=== PATIENT | male | born 1985 | race Two or more races ===

== ENCOUNTER 2017-09-20 08:19 | Emergency (ER) | payer OTHER ==
[2017-09-20 08:25] VITALS: BP 139/83; PULSE 83; TEMP 97.5; BMI 40.7
[2017-09-20] MEDS ORDERED: ALBUTEROL SO4 2.5/IPRATROPIUM 0.5 INH SOL 3 ML VIAL.NEB. NEB ONE ×3 (08:51→09:55)
[2017-09-20] MEDS ORDERED: predniSONE 20 MG TABLET (UD) PO ONE (08:51)
[2017-09-20] MEDS ORDERED: predniSONE 20 MG TABLET (UD) ONE (08:53)
--- NOTE | 2017-09-20 08:53 | PDOC ---
History of Present Illness - General Chief Complaint: Cold Symptoms Stated Complaint: COUGH Time Seen by Provider: 09/20/17 08:50 History Source: Patient Exam Limitations: No Limitations - History of Present Illness Initial Comments: 09/20/17 08:51 came for eval of persisitant/ worsening cough/ wheezing. States gets " bronchitis" every year this time. Denies fevers but cough and tightness worsening. Ran out of medications. 09/20/17 16:50 Severity: reports: mild, moderate Associated Symptoms: reports: cough, nasal congestion, nasal drainage, shortness of breath, wheezing Past History - Travel Traveled outside of the country in the last 30 days: No Close contact w/someone who was outside of country & ill: No - Past Medical History Allergies/Adverse Reactions: Allergies Allergy/AdvReac Type Severity Reaction Status Date / Time clindamycin Allergy Verified 09/20/17 08:23 Home Medications: Ambulatory Orders Albuterol Sulfate Inhaler - [Ventolin HFA Inhaler -] 1 - 2 inh IH QID #1 inhaler 04/19/12 Albuterol Sulfate Inhaler - [Ventolin Hfa *Inhaler*] 1 - 2 inh IH QID 04/19/12 Salmeterol/Fluticasone [Advair 250/50] 1 each IH BID #1 disk.w.dev 04/19/12 Albuterol 2.5/Ipratropium 0.5 [Duoneb -] 1 neb IH QID #30 vial.neb. 09/20/17 Azithromycin [Zithromax -] 250 mg PO UTDICT #6 tab 09/20/17 predniSONE [Deltasone -] 20 mg PO BID #8 tablet 09/20/17 Asthma: Yes COPD: No Diabetes: No HTN: No Hypercholesterolemia: No - Suicide/Smoking/Psychosocial Hx Smoking Status: No Smoking History: Never smoked Have you smoked in the past 12 months: No Number of Cigarettes Smoked Daily: 0 Information on smoking cessation initiated: No Hx Alcohol Use: No Drug/Substance Use Hx: No Substance Use Type: None Review of Systems - Review of Systems Able to Perform ROS?: Yes Is the patient limited Vietnamese proficient: Yes Constitutional: Yes: Symptoms Reported, See HPI, Fever, Malaise HEENTM: Yes: See HPI. No: Symptoms Reported Respiratory: Yes: Symptoms reported, See HPI, Cough, Shortness of Breath, SOB with Exertion, Wheezing Cardiac (ROS): No: Symptoms Reported ABD/GI: No: Symptoms Reported Neurological: No: Symptoms reported All Other Systems: Reviewed and Negative *Physical Exam - Vital Signs Last Vital Signs Temp Pulse Resp BP Pulse Ox 97.5 F L 83 16 139/83 100 09/20/17 08:23 09/20/17 08:23 09/20/17 08:23 09/20/17 08:23 09/20/17 08:23 - Physical Exam General Appearance: Yes: Nourished, Appropriately Dressed, Apparent Distress, Moderate Distress HEENT: positive: ANTOINE, Normal ENT Inspection, TMs Normal, Pharynx Normal Neck: positive: Supple. negative: Tender, Lymphadenopathy (R) Respiratory/Chest: positive: Wheezing. negative: Lungs Clear (tight insp and exp BS , + moist non productive cough), Normal Breath Sounds, Respiratory Distress Gastrointestinal/Abdominal: positive: Soft. 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 Medical Decision Making - Medical Decision Making 09/20/17 10:36 3 DuoNeb's, 60 mg prednisone, patient mildly improved, chest x-ray pending 09/20/17 11:05 XRay Negative for infiltrates / pathology. 09/20/17 11:52 Second survey negative for infiltrates, states feels much improved after fourth DuoNeb and ready for discharge. We'll send antibiotics,/Z-Hemal, prednisone for additional 4 days, and albuterol *DC/Admit/Observation/Transfer Diagnosis at time of Disposition: Bronchitis - Discharge Dispostion Disposition: HOME Condition at time of disposition: Stable Admit: No - Prescriptions Prescriptions: Albuterol 2.5/Ipratropium 0.5 [Duoneb -] 1 neb IH QID #30 vial.neb. Azithromycin [Zithromax -] 250 mg PO UTDICT #6 tab predniSONE [Deltasone -] 20 mg PO BID #8 tablet - Referrals - Patient Instructions Printed Discharge Instructions: DI for Acute Bronchitis Additional Instructions: Rest, drink lots of fluids: Teas, water, soups, Pedialyte Saltwater gargles Steamy showers/seem to face break up mucus Avoid contact with others until fevers and cough resolved Lots of handwashing and good hygiene Continue [id number] medications for symptomatic relief Tylenol or Motrin for fever and pain Continue albuterol nebulizers every 4-6 hours for the next 2 days then as needed for continued cough Prednisone as directed until completed zithromax as directed Followup with private physician in one to 2 days Return to emergency department / pediatric hospital for worsened symptoms, fevers, dehydration - Post Discharge Activity Forms/Work/School Notes: Back to Work
== END 2017-09-20 11:19 | disposition home or self-care (01) ==
LOC: JERFT 08:19
PROC: 3E0F7GC Introduction of Other Therapeutic Substance into Respiratory Tract, Via Natural or Artificial Opening (ICD-10-PCS; principal; 2017-09-20)
DX: J40 Bronchitis, not specified as acute or chronic (principal)
CPT/HCPCS: 71046-TC-FY; 99281-25

== ENCOUNTER 2019-08-14 12:58 | Emergency (ER) | payer OTHER ==
[2019-08-14 13:23] VITALS: BP 131/78; PULSE 84; TEMP 98.1; BMI 33.3
--- NOTE | 2019-08-14 14:04 | PDOC ---
History of Present Illness - General Chief Complaint: Eye Problem Stated Complaint: BLOORY VISION Time Seen by Provider: 08/14/19 14:04 History Source: Patient - History of Present Illness Initial Comments: 08/14/19 16:23 Chief complaint: Eye irritation Patient is a healthy 34-year-old male, does not wear glasses or contact lenses or have any eye problems who states for the last several days that his left eye has felt gritty and he has pain when he presses on one spot. Patient states today that he feels like his vision is questionably a little blurry. Patient does not recall any injury. GENERAL/CONSTITUTIONAL: No fever, weakness. dizziness HEAD, EYES, EARS, NOSE AND THROAT: Left eye irritation. No ear pain or discharge. No sore throat. CARDIOVASCULAR: No chest pain RESPIRATORY: No shortness of breath or cough GASTROINTESTINAL: No pain, nausea, vomiting, diarrhea or constipation GENITOURINARY: No dysuria MUSCULOSKELETAL: No neck or back pain SKIN: No rash NEUROLOGIC: No headache, vertigo, loss of consciousness, or loss of sensation. GENERAL: The patient is awake, alert, and fully oriented, in no acute distress. HEAD: Normal with no signs of trauma. EYES: Pupils equal, round and reactive to light, sclera anicteric, conjunctiva clear. EOMs intact, fundus exam grossly clear ENT: pharynx: no erythema, no exudate, uvula midline NECK: supple CHEST: clear, nontender, rr EXTREMITIES: Normal range of motion, no edema. NEUROLOGICAL: Normal speech, normal gait. SKIN: Warm, Dry Past History - Past Medical History Allergies/Adverse Reactions: Allergies Allergy/AdvReac Type Severity Reaction Status Date / Time clindamycin Allergy Verified 08/14/19 13:17 Home Medications: Ambulatory Orders Albuterol Sulfate Inhaler - [Ventolin Hfa *Inhaler*] 1 - 2 inh IH QID 04/19/12 Salmeterol/Fluticasone [Advair 250/50] 1 each IH BID #1 disk.w.dev 04/19/12 Albuterol 2.5/Ipratropium 0.5 [Duoneb -] 1 neb IH QID #30 vial.neb. 09/20/17 Ciprofloxacin 0.3% Eye Drops [Ciloxan 0.3% Eye Drops -] 2 drop OS Q4H #1 bottle 08/14/19 Asthma: Yes COPD: No Diabetes: No HTN: No Hypercholesterolemia: No - Psycho Social/Smoking Cessation Hx Smoking Status: No Smoking History: Never smoked Have you smoked in the past 12 months: No Number of Cigarettes Smoked Daily: 0 Hx Alcohol Use: No Drug/Substance Use Hx: No Substance Use Type: None *Physical Exam - Vital Signs Last Vital Signs Temp Pulse Resp BP Pulse Ox 98.1 F 84 18 131/78 99 08/14/19 13:21 08/14/19 13:21 08/14/19 13:21 08/14/19 13:21 08/14/19 13:21 Procedures - Eye Procedure Alcaine Drops Administered: Yes Eye Irrigated w/ Saline(Delmar Lens): No Progress: 08/14/19 16:27 Corneal abrasion seen between 11 and 12:00 over a decent aspect of the upper cornea, round, not obviously an ulcer. Medical Decision Making - Medical Decision Making 08/14/19 16:26 34-year-old male with left eye irritation, with some questional he blurry vision today. Visual acuity is 20/20 in the right eye and 20/30 in the left eye. Patient has no swelling or concerning clinical exam to the eye prior to staining. Does not wear glasses or contact lenses Fluorescein stain shows a corneal abrasion. Patient is allergic to clindamycin. We will give him Cipro drops and have him follow-up at [facility]. Discussed issues, findings, results, applicable medications and treatments and follow-up. All these were understood and all questions were answered Discharge - Discharge Information Problems reviewed: Yes Clinical Impression/Diagnosis: Corneal abrasion Qualifiers: Encounter type: initial encounter Laterality: left Qualified Code(s): S05.02XA - Injury of conjunctiva and corneal abrasion without foreign body, left eye, initial encounter Condition: Stable Disposition: HOME - Admission No - Additional Discharge Information Prescriptions: Ciprofloxacin 0.3% Eye Drops [Ciloxan 0.3% Eye Drops -] 2 drop OS Q4H #1 bottle - Follow up/Referral Referrals: Loreto Maciel MD [Staff Physician] - Prabhu Goodwin MD [Staff Physician] - - Patient Discharge Instructions Patient Printed Discharge Instructions: DI for Corneal Abrasion Additional Instructions: Put the Cipro drops in your left eye, 2 drops every 4 hours as directed. Make sure you see the digital manager in 24 to 48 hours. You were given the name of 2 of them. See who takes your insurance but find one and call them today to make the appointment. Make sure you tell them that you are in the emergency department and you have a corneal abrasion. Return to the ER if fever, redness around your eye, severe eye pain or other concerns - Post Discharge Activity
[2019-08-14] MEDS ORDERED: FLUORESCEIN NA 1 EA STRIP OS ONE (14:16)
[2019-08-14] MEDS ORDERED: TETRACAINE 0.5% HCL 0.6ML DROPPER.BOTTLE OS ONE (14:17)
[2019-08-14] MEDS ORDERED: TETRACAINE 0.5% OPHTH SOLN 2 ML BOTTLE ONE (14:20)
[2019-08-14] MEDS ORDERED: FLUORESCEIN NA 1 EA STRIP ONE (14:20)
== END 2019-08-14 14:52 | disposition home or self-care (01) ==
LOC: JERFT 12:58
DX: S05.02XA Injury of conjunctiva and corneal abrasion without foreign body, left eye, initial encounter (principal); Z88.8 Allergy status to other drugs, medicaments and biological substances; J45.909 Unspecified asthma, uncomplicated
CPT/HCPCS: 99283-25

== ENCOUNTER 2021-01-11 08:46 | Emergency (ER) | payer OTHER ==
[2021-01-11 08:57] VITALS: TEMP 97.9; BMI 44.9
[2021-01-11] MEDS ORDERED: SODIUM CHLORIDE 0.9% 500 ML INFUS.BAG IV ONE (09:45)
[2021-01-11] MEDS ORDERED: ACETAMINOPHEN INJECTION 100 ML IVPB ONE (09:45)
[2021-01-11] MEDS ORDERED: ACETAMINOPHEN 1000 MG/100 ML VIAL (NON FORMULARY) IVPB ONE (09:45)
[2021-01-11] MEDS ORDERED: ONDANSETRON 4 MG/2 ML VIAL IVPUSH ONE (10:49)
[2021-01-11] MEDS ORDERED: ONDANSETRON 4 MG/2 ML VIAL ONE (10:58)
[2021-01-11 11:57] LABS: BASO % 0.2 % (0-2.0); EOS % 0.3 % (0-4.5); HEMATOCRIT 41.2 % (35.4-49); HEMOGLOBIN 13.8 GM/dL (11.7-16.9); LYMPH % 10.3 % (8-40); MCH 28.8 pg (25.7-33.7); MCHC 33.6 g/dl (32.0-35.9); MEAN CELL VOLUME 85.9 fl (80-96); MEAN PLT VOLUME 8.8 fl (7.5-11.1); MONO % 5.8 % (3.8-10.2); NEUT % 83.4 % (42.8-82.8); PLATELET COUNT 296 10^3/uL (134-434); RDW 13.8 % (11.9-15.9); WHITE BLOOD COUNT 11.6 K/mm3 (4.0-10.0)
[2021-01-11 12:16] LABS: ALBUMIN 3.9 g/dl (3.4-5.0); BLOOD UREA NITROGEN 16.1 mg/dL (7-18); CALCIUM 8.6 mg/dL (8.5-10.1)
[2021-01-11 12:19] LABS: CREATININE 1.1 mg/dL (0.55-1.3)
[2021-01-11 12:22] LABS: BILIRUBIN,TOTAL 0.6 mg/dL (0.2-1); TOT PROT 7.6 g/dl (6.4-8.2)
[2021-01-11] MEDS ORDERED: KETOROLAC TROMETHAMINE 15 MG/ML VIAL IVPUSH ONE (12:29)
[2021-01-11] MEDS ORDERED: KETOROLAC TROMETHAMINE 15 MG/ML VIAL ONE (12:32)
[2021-01-11 12:39] VITALS: BP 139/87; PULSE 69
[2021-01-11 12:55] LABS: EPI CELLS 7 /uL (0-25.1); HYALINE CASTS 2 /uL (0-3.1); PH,URINE 5.5 (5.0-8.0); URINE APPEARANCE CLEAR; URINE BACTERIA 24 /uL (0-1359); URINE BILIRUBIN NEGATIVE (NEGATIVE); URINE COLOR YELLOW; URINE GLUCOSE (UA) NEGATIVE (NEGATIVE); URINE KETONE NEGATIVE (NEGATIVE); URINE LEUK ESTERASE NEGATIVE (NEGATIVE); URINE NITRITE NEGATIVE (NEGATIVE); URINE PROTEIN NEGATIVE (NEGATIVE); URINE RBC 21 /uL (0-23.9); URINE UROBILINOGEN 0.2 mg/dL (0.2-1.0); URINE WBC 8 /uL (0-25.8)
== END 2021-01-11 13:40 | disposition home or self-care (01) ==
LOC: JER 08:46
PROC: 3E0333Z Introduction of Anti-inflammatory into Peripheral Vein, Percutaneous Approach (ICD-10-PCS; principal; 2021-01-11)
PROC: 3E0333Z Introduction of Anti-inflammatory into Peripheral Vein, Percutaneous Approach (ICD-10-PCS; 2021-01-11)
PROC: 3E033GC Introduction of Other Therapeutic Substance into Peripheral Vein, Percutaneous Approach (ICD-10-PCS; 2021-01-11)
DX: R10.9 Unspecified abdominal pain (principal)
CPT/HCPCS: 36415; 80053; 81003; 85025; 87086; 99284-25; J0131